=== PATIENT | male | born 1990 | race Caucasian/White ===

== ENCOUNTER 2025-06-01 10:59 | Emergency (ER) | payer SELFPAY ==
[2025-06-01 11:02] VITALS: BP 127/92
--- NOTE | 2025-06-01 11:46 | ED.MUSCINJ ---
HPI-Injury
General
Chief Complaint: Fall
Source: patient
Exam Limitations: none
Time Seen by Provider: 06/01/25 11:25
History of Present Illness-Injury
Initial Injury comments:
34-year-old male with history of ADHD on Adderall presents complaining of left knee pain and headache. He slipped and fell in the bathroom yesterday. He states the bathroom was wet on the floor. He twisted and landed on his left knee and also
struck his head. He is uncertain if he lost conscious. He notes headache dizziness and nausea that seems to be worsening since the injury. He also notes left knee discomfort. He actually broke the toilet that he hit when he fell.
Phy Exam
Physical Exam
Physical Exam:
General: Well-appearing male no acute respiratory distress
HEENT normal cephalic atraumatic pupils equal round reactive to light extract motions intact
Musculoskeletal exam: Left knee is tender laterally without effusion. The posterior joint line nontender increased pain with varus stress. The spine is nontender to the midline.
Injury Course
Orders/Labs/Results
Orders:
Orders
06/01/25 11:36
CR Knee - Left 4 Or More View* Urgent
Comment:
Reason For Exam: fall
06/01/25 11:37
CT Head W/o Iv Contrast Urgent
Comment:
Reason For Exam: head injury
MDM/Problems Addressed
Differential Diagnosis Includes:
Head strike and left knee pain after slip and fall. Patient notes worsening headache. Consider concussion versus fracture versus intracranial bleed. CT pending. X-ray left knee pending to evaluate for fracture but likely sprain.
*Pulse Oximetry
SaO2: 97
Oxygen Mode of Delivery: Room air
Patient hypoxic: no
*Critical Care Note
Total Time (30-74mins, 75-104mins- exclusive of procedures): Not Applicable
Update Note
Update Note:
CT head negative x-ray left knee negative. Suspect mild concussion and knee sprain. Recommended ibuprofen Tylenol and rest. Stable for discharge
ED Attending Note
-
Portions of this chart may have been created with voice recognition software.� Occasional wrong word or��sound alike� substitutions may have occurred due to the inherent limitations of voice recognition software.
Discharge Plan
Departure
Patient Disposition: Home (Routine Discharge)
Date of Disposition: 06/01/25
Time of Disposition: 14:19
Patient with high blood pressure during this ER visit?: No
Discharge Problem:
Knee sprain, Head injury
Instructions: Concussion, Adult (DC)
Referrals:
UNKNOWN - PT DOES,NOT KNOW [Family Provider]
Activity Restrictions/Additional Instructions:
Rest. Use ibuprofen or Tylenol for pain. Return here if worse otherwise follow-up with your doctor
Interventions
Interventions:
*Risk Screen - Suicide Last Done: 06/01/25 11:02
*General Assessment Last Done: 06/01/25 11:02
*Neglect/Abuse Screening Last Done: 06/01/25 11:15
*ED- Fall Risk Assessment Last Done: 06/01/25 11:15
*ED COVID-19 Vaccine History Last Done: 06/01/25 11:15
ED-Musculoskeletal Assessment Last Done: 06/01/25 11:15
ED- Neurological Assessment Last Done: 06/01/25 11:15
ED-Skin Assessment Last Done: 06/01/25 11:15
Discharge Date and Time
Print Language: [id number]
[2025-06-01 14:26] VITALS: BP 144/91
== END 2025-06-01 14:39 | disposition home or self-care (01) ==
LOC: EMR 10:59
PROVIDERS: EMERGENCY PHYSICIAN Emergency Medicine
DX: S83.92XA Sprain of unspecified site of left knee, initial encounter (principal); S09.90XA Unspecified injury of head, initial encounter; F90.9 Attention-deficit hyperactivity disorder, unspecified type; W01.198A Fall on same level from slipping, tripping and stumbling with subsequent striking against other object, initial encounter; Y92.002 Bathroom of unspecified non-institutional (private) residence as the place of occurrence of the external cause
CPT/HCPCS: 99284; 70450; 73564